=== PATIENT | female | born 1950 | race Caucasian/White ===

== ENCOUNTER → 2022-02-28 11:06 | Outpatient (BNVA) | payer MEDICARE, BC, SELFPAY | PROVIDERS: Referring Provider Internal Medicine; Visit Provider Internal Medicine | DX: D49.7 Neoplasm of unspecified behavior of endocrine glands and other parts of nervous system (principal); E03.8 Other specified hypothyroidism; Z87.898 Personal history of other specified conditions; Z87.891 Personal history of nicotine dependence | CPT/HCPCS: 99204 ==

== ENCOUNTER → 2022-09-26 12:38 | Outpatient (BNVA) | payer MEDICARE, BC, SELFPAY | PROVIDERS: Visit Provider Internal Medicine | DX: E03.8 Other specified hypothyroidism (principal); D49.7 Neoplasm of unspecified behavior of endocrine glands and other parts of nervous system; Z79.890 Hormone replacement therapy | CPT/HCPCS: 84439; 99214 ==

== ENCOUNTER → 2023-09-26 10:01 | Outpatient (BNVA) | payer MEDICARE, BC, SELFPAY | PROVIDERS: PCP Family Medicine; Visit Provider Internal Medicine | DX: E03.8 Other specified hypothyroidism (principal); D49.7 Neoplasm of unspecified behavior of endocrine glands and other parts of nervous system; R53.83 Other fatigue; Z87.898 Personal history of other specified conditions; Z79.890 Hormone replacement therapy | CPT/HCPCS: 99214 ==

== ENCOUNTER → 2024-01-02 11:06 | Outpatient (BNVA) | payer MEDICARE, BC, SELFPAY | PROVIDERS: PCP Family Medicine; Visit Provider Internal Medicine | DX: E03.8 Other specified hypothyroidism (principal); D49.7 Neoplasm of unspecified behavior of endocrine glands and other parts of nervous system; R53.83 Other fatigue; Z87.898 Personal history of other specified conditions; K22.9 Disease of esophagus, unspecified; Z79.890 Hormone replacement therapy | CPT/HCPCS: 99214 ==

== ENCOUNTER → 2024-07-02 10:15 | Outpatient (BNVA) | payer MEDICARE, BC, SELFPAY | PROVIDERS: PCP Family Medicine; Visit Provider Internal Medicine | DX: E03.8 Other specified hypothyroidism (principal); Z87.898 Personal history of other specified conditions; Z79.890 Hormone replacement therapy | CPT/HCPCS: 99214 ==

== ENCOUNTER → 2025-01-27 10:42 | Outpatient (BNVA) | payer MEDICARE, BC, SELFPAY | PROVIDERS: PCP Family Medicine; Visit Provider Internal Medicine | DX: E03.8 Other specified hypothyroidism (principal); D49.7 Neoplasm of unspecified behavior of endocrine glands and other parts of nervous system; R53.83 Other fatigue | CPT/HCPCS: 99214 ==

== ENCOUNTER → 2025-07-28 10:28 | Outpatient (BNVA) | payer MEDICARE, BC, SELFPAY | PROVIDERS: PCP Family Medicine; Visit Provider Internal Medicine | DX: E03.8 Other specified hypothyroidism (principal); D35.2 Benign neoplasm of pituitary gland; R53.83 Other fatigue; Z87.898 Personal history of other specified conditions; K22.9 Disease of esophagus, unspecified; K59.89 Other specified functional intestinal disorders | CPT/HCPCS: 99214 ==